=== PATIENT | female | born 1975 | race Caucasian/White ===

== ENCOUNTER 2019-02-19 09:51 | Emergency (ER) | payer OTHER ==
[~2019-02-19] VITALS: Ht 162.6 cm; Wt 59.0 kg
[~2019-02-19 09:51] MED LIST: ALPRAZOLAM; ALPRAZOLAM ER1 MG PO; AMBIEN 10 MG TA10 MG PO; CELEXA 20 MG TA20 MG PO; DOXYCYCLINE 10100 MG PO; FAMOTIDINE OR; FLAGYL500 MG PO; LAMICTAL 25 MG25 M1 PO; NORTRIPTYLINE H50 M3 PO; RISPERDAL0.5 MG PO; TRAMADOL 50 MG50 MG PO; XANAX1 MG PO; ZOLOFT
[2019-02-19] MEDS ORDERED: NORCO 5-325 TA1 EACH PO (10:02)
[2019-02-19] MEDS ORDERED: CYMBALTA30 MG PO (10:02)
[2019-02-19 11:27] LABS: ABSOLUTE BASOPHILS 0.1 thou/uL (0.0-0.2); ABSOLUTE EOSINOPHILS 0.1 thou/uL (0.0-0.7); ABSOLUTE LYMPHOCYTES 1.9 thou/uL (0.8-5.3); ABSOLUTE MONOCYTES 0.4 thou/uL (0.0-1.2); EOSINOPHILS 0.8 %; HEMATOCRIT 43.8 % (37.0-47.0); LYMPHOCYTES 25.7 %; MCH 32.1 pg (26.0-34.0); MCHC 34.1 g/dL (28.0-37.0); MCV 94.1 fL (80.0-100.0); MONOCYTES 5.5 %; NUCLEATED RBCS 0 /100WBC; PLATELET COUNT* 251 thou/uL (150-400); RBC 4.66 mil/uL (4.20-5.00); RDW-CV 14.1 % (10.5-14.5); WBC 7.4 thou/uL (4.0-11.0)
[2019-02-19 11:35] LABS: INR 0.9; PROTIME 9.6 Seconds (9.20-11.50)
[2019-02-19 11:43] VITALS: BP 144/80
[2019-02-19 11:55] LABS: ALBUMIN 3.7 g/dL (3.4-5.0); CALCIUM 8.7 mg/dL (8.5-10.1); POTASSIUM 4.7 mmol/L (3.5-5.1); TOTAL BILIRUBIN 0.2 mg/dL (<0.1-1.0); TOTAL PROTEIN 7.4 g/dL (6.4-8.2)
== END 2019-02-19 11:43 | disposition short-term general hospital (02) ==
LOC: M.ERS 09:51
PROVIDERS: Family Medicine
DX: S06.1X0A Traumatic cerebral edema without loss of consciousness, initial encounter (principal); S16.1XXA Strain of muscle, fascia and tendon at neck level, initial encounter; S00.83XA Contusion of other part of head, initial encounter; M79.7 Fibromyalgia; F41.9 Anxiety disorder, unspecified; Z90.49 Acquired absence of other specified parts of digestive tract; Z90.710 Acquired absence of both cervix and uterus; F17.210 Nicotine dependence, cigarettes, uncomplicated; Z88.6 Allergy status to analgesic agent; Y04.2XXA Assault by strike against or bumped into by another person, initial encounter; Y93.89 Activity, other specified; Y92.89 Other specified places as the place of occurrence of the external cause; Y99.8 Other external cause status

== ENCOUNTER 2019-06-20 13:50 | Emergency (ER) | payer OTHER ==
[~2019-06-20] VITALS: Ht 162.6 cm; Wt 72.6 kg
[~2019-06-20 13:50] MED LIST changes: +CYMBALTA30 MG PO; +NORCO 5-325 TA1 EACH PO
[2019-06-20] MEDS ORDERED: AMBIEN 5 MG TABL5 M1 PO (14:14)
[2019-06-20] MEDS ORDERED: BACTRIM DS TAB1 EACH PO (14:14)
[2019-06-20] MEDS ORDERED: KEFLEX500 M1 PO (14:15)
[2019-06-20] MEDS ORDERED: XANAX 0.5 MG0.5 MG PO (14:15)
[2019-06-20 16:04] VITALS: BP 113/74
== END 2019-06-20 16:05 | disposition home or self-care (01) ==
LOC: M.ERS 13:50
DX: S05.11XA Contusion of eyeball and orbital tissues, right eye, initial encounter (principal); L02.411 Cutaneous abscess of right axilla; M79.7 Fibromyalgia; F41.9 Anxiety disorder, unspecified; M32.9 Systemic lupus erythematosus, unspecified; Z90.49 Acquired absence of other specified parts of digestive tract; Z90.710 Acquired absence of both cervix and uterus; Z88.6 Allergy status to analgesic agent; X58.XXXA Exposure to other specified factors, initial encounter; Y93.89 Activity, other specified; Y92.89 Other specified places as the place of occurrence of the external cause; Y99.8 Other external cause status

== ENCOUNTER 2019-06-22 00:39 | Emergency (ER) | payer OTHER ==
[~2019-06-22] VITALS: Ht 162.6 cm; Wt 72.6 kg
[~2019-06-22 00:39] MED LIST changes: +AMBIEN 5 MG TABL5 M1 PO; +BACTRIM DS TAB1 EACH PO; +KEFLEX500 M1 PO; +XANAX 0.5 MG0.5 MG PO
[2019-06-22 00:53] VITALS: BP 127/73
== END 2019-06-22 01:08 | disposition home or self-care (01) ==
LOC: M.ERS 00:39
DX: L02.411 Cutaneous abscess of right axilla (principal); F41.9 Anxiety disorder, unspecified; M79.7 Fibromyalgia; F17.210 Nicotine dependence, cigarettes, uncomplicated; Z90.710 Acquired absence of both cervix and uterus